=== PATIENT | female | born 1960 ===

== ENCOUNTER 2017-06-30 06:48 | Day surgery (SDC) | payer OTHER ==
[~2017-06-30 06:48] MED LIST: AFRIN SPRAY15 ML NS; CIPRO500 MG PO; ULTRACET PO
== END 2017-06-30 14:41 | disposition home or self-care (01) ==
LOC: CIR.AMB 06:48
DX: K64.2 Third degree hemorrhoids (principal); K64.4 Residual hemorrhoidal skin tags

== ENCOUNTER → 2018-04-08 | Outpatient (CLI) | payer OTHER | END | disposition home or self-care (01) | LOC: MAMO-SONO 10:15 | DX: Z12.31 Encounter for screening mammogram for malignant neoplasm of breast (principal); Z87.898 Personal history of other specified conditions; N63.10 Unspecified lump in the right breast, unspecified quadrant; N63.20 Unspecified lump in the left breast, unspecified quadrant; N60.01 Solitary cyst of right breast; N60.02 Solitary cyst of left breast ==

== ENCOUNTER 2018-09-29 13:38 | Outpatient (CLI) | payer OTHER | END 2018-09-29 14:33 | disposition home or self-care (01) | LOC: RAD 13:38 | DX: I11.9 Hypertensive heart disease without heart failure (principal); M79.7 Fibromyalgia; Z68.42 Body mass index [BMI] 45.0-49.9, adult; J44.1 Chronic obstructive pulmonary disease with (acute) exacerbation ==

== ENCOUNTER → 2018-11-02 | Outpatient (CLI) | payer OTHER | END | disposition home or self-care (01) | LOC: RAD 13:42 | DX: M17.0 Bilateral primary osteoarthritis of knee (principal) ==

== ENCOUNTER 2019-04-10 10:20 | Outpatient (CLI) | payer OTHER | END 2019-04-10 10:22 | disposition home or self-care (01) | LOC: MAMO-SONO 10:20 | DX: Z12.31 Encounter for screening mammogram for malignant neoplasm of breast (principal); N64.89 Other specified disorders of breast ==

== ENCOUNTER 2019-11-20 08:15 | Outpatient (CLI) | payer OTHER | END 2019-11-20 08:26 | disposition home or self-care (01) | LOC: NUCLEAR 08:15 | PROVIDERS: ATTEND Physical Medicine & Rehabilitation | DX: I73.9 Peripheral vascular disease, unspecified (principal); R22.43 Localized swelling, mass and lump, lower limb, bilateral; I87.2 Venous insufficiency (chronic) (peripheral) ==

== ENCOUNTER 2019-11-21 08:23 | Outpatient (CLI) | payer OTHER | END 2019-11-21 08:29 | disposition home or self-care (01) | LOC: NUCLEAR 08:23 | PROVIDERS: ATTEND Physical Medicine & Rehabilitation | DX: I73.9 Peripheral vascular disease, unspecified (principal); R22.43 Localized swelling, mass and lump, lower limb, bilateral ==